=== PATIENT | male | born 1955 | race Caucasian/White ===

== ENCOUNTER 2024-10-11 18:26 | Emergency (ER) | payer MEDICARE ==
[2024-10-11] MEDS: Lidocaine 2% with EPINEPHrine 1:100,000 20 ML MDV INJECT ONE (18:54)
[2024-10-11] MEDS: Cephalexin 500 MG Cap PO ONE (19:28)
== END 2024-10-11 19:32 | disposition home or self-care (01) ==
LOC: VM.ED 18:26
DX: S51.812A Laceration without foreign body of left forearm, initial encounter (principal); Z79.51 Long term (current) use of inhaled steroids; Z79.899 Other long term (current) drug therapy; W12.XXXA Fall on and from scaffolding, initial encounter; Y93.39 Activity, other involving climbing, rappelling and jumping off
CPT/HCPCS: 12004; 73090-LT; 99283; 99284; A9270-GY; J3490